=== PATIENT | female | born 1960 | race Caucasian/White ===

== ENCOUNTER → 2024-10-28 | Outpatient (CLI) | payer MEDICAID, SELFPAY ==
--- NOTE | 2024-10-28 14:51 | XR_ITS ---
Examination: PA lateral chest 2 views TECHNIQUE: Upright PA lateral chest 2 views Exam date and time: October 28, 2024 1402 hours Comparison September 04, 2024 INDICATIONS: Shortness of breath 6 months, history miliary nodular pattern on CT chest October 04, 2024 FINDINGS: Moderate hyperexpansion Normal heart size No pneumonia identified 3 mm 2 mm pulmonary nodules right lower lobe Moderate osteopenia IMPRESSION: 3 mm, 2 mm pulmonary nodules right lower lobe
== END | disposition home or self-care (01) ==
LOC: CDIM 14:40
PROVIDERS: PCP Family Medicine; Referring Provider Nurse Practitioner Family; Visit Provider Nurse Practitioner Family
DX: R91.8 Other nonspecific abnormal finding of lung field (principal)
CPT/HCPCS: 71046

== ENCOUNTER → 2024-11-08 | Outpatient (CLI) | payer MEDICAID, SELFPAY ==
--- NOTE | 2024-11-07 11:00 | XR_ITS ---
Examination: Breast ultrasound, unilateral, left complete Date and time of exam: November 07, 2024 1119 hours INDICATIONS: Mammogram September 02, 2024 8 mm focal asymmetry upper outer left breast Technique: Real-time arango scale ultrasonographic imaging performed left breast including all 4 quadrants as well as nipple retroareolar and axillary region. Findings: No cystic or solid mass IMPRESSION: BI-RADS Category 1: Negative study
--- NOTE | 2024-11-08 | XR_ITS ---
Examination: Diagnostic digital mammography, unilateral, left Computer aided detection 3-D breast Tomosynthesis, unilateral Date and time of exam: November 08, 2024 0758 hours INDICATIONS: Mammogram September 02, 2024 8 mm focal asymmetry upper outer left breast Technique: Nonmagnified MLO, CC views of the left breast have been obtained, reconstructed from 3-D Tomosynthesis images. R2 computer aided detection program utilized for evaluation of suspicious masses and/or abnormal calcifications. 3-D Tomosynthesis images obtained. Findings: Scattered areas of fibroglandular density No suspicious masses noted on the spot compression views Impression: BI-RADS category 2: Benign findings Return to yearly follow-up mammography
== END | disposition home or self-care (01) ==
PROVIDERS: PCP Nurse Practitioner Family; Referring Provider Nurse Practitioner Family; Visit Provider Nurse Practitioner Family
DX: R92.322 Mammographic fibroglandular density, left breast (principal)
CPT/HCPCS: 76641; 77061; 77065; G0279

== ENCOUNTER 2024-12-23 09:53 | Outpatient (RCR) | payer MEDICAID, SELFPAY ==
--- NOTE | 2024-12-23 10:00 | XR_ITS ---
Examination: SANDI, hepatobiliary radioisotope scan Gallbladder ejection fraction study. Date and time of exam: December 23, 2024 1010 hours INDICATIONS: Nausea vomiting heartburn this week, smoking history 40 years Technique: 5.9 mCi of 99M Hepatolite administered. Serial imaging then obtained from immediate through 60 minutes. 1.1 mcg selective catheter Kinevac administered for gallbladder ejection fraction study. Findings: Radioisotope activity within the liver is reasonably homogenous. Gallbladder, common bile duct small bowel activity noted Impression: Gallbladder activity Abnormal gallbladder ejection fraction 40% normal greater than 35%
== END 2024-12-28 23:59 | disposition home or self-care (01) ==
LOC: SNUC 09:53
PROVIDERS: Referring Provider Nurse Practitioner Family; Visit Provider Nurse Practitioner Family
DX: R93.2 Abnormal findings on diagnostic imaging of liver and biliary tract (principal)
CPT/HCPCS: 78227; A9537; J2805

== ENCOUNTER 2025-04-19 19:47 | Emergency (ER) | payer MEDICAID, SELFPAY ==
--- NOTE | 2025-04-19 20:40 | PD.EDSOB ---
ED SOB =RME/HPI General Chief Complaint: Shortness of Breath/Dyspnea Stated Complaint: SOB, LOW O2 AT HOME Time Seen by Provider: 04/19/25 20:40 Arrival date/time: 04/19/25 19:47 RME / HPI RME / HPI Narrative: This section includes all my notes and documentations, including HPI, PE, and ED course. Alexi Raymond MD HPI: 64 y/o female with Hx of COPD, Asthma, and smoking presents to ED c/o shortness of breath and headache and purulent productive cough for about a week. Denies fever. Patient previously stopped smoking, but recently had an ND and she began again. No other complaints. ROS: All negative except as documented in HPI. Physical Exam: General: Alert and oriented. Hacking cough noted. Eyes: Conjunctivae and lids clear. ENT: No nasal congestion. Pharynx normal. TM normal bilaterally. Neck: Supple. Heart: RRR. Lungs: No respiratory distress. Mildly decreased air movement with rales. Abdomen: Soft and nontender. Skin: Warm and dry. Neuro: Alert and oriented X 3. I reviewed all diagnostic test results. My interpretation of the chest x-ray is infiltrates. COVID/influenza negative. At this point, diagnoses include Pneumonia. Treatment here included Zithromax, Prednisone. Recommended outpatient management. Based on my best medical judgment, made decision no further evaluation or treatment indicated at this time. Patient understands and agrees to the discharge instructions customized and printed, see below. Discharge instructions from Dr. Raymond: --No physical exertion for 3 days to help rest the lungs. ?No smoking or exposure to smoking or pets or dust or cold or humidity. --Zithromax and cefdinir to kill the germs causing the pneumonia. --Prednisone to help decrease the swelling in the airways. --Albuterol 2 puffs every 4-6 hours for 3 days to help keep the airways open. Then as needed for cough or shortness of breath. --See a private doctor next week for recheck if not completely better. --Seek immediate medical care with worsening or with any concerns. Alexi Raymond MD Related Data Home Medications ?Medication ?Instructions ?Recorded ?Confirmed amitriptyline 25 mg tablet 25 mg PO DAILY 08/18/24 08/18/24 atogepant 60 mg tablet (Qulipta) 60 mg PO DAILY 08/18/24 08/18/24 baclofen 10 mg tablet 10 mg PO TID 08/18/24 08/18/24 duloxetine 60 mg capsule,delayed 60 mg PO DAILY 08/18/24 08/18/24 release fluticasone 250 mcg-salmeterol 50 2 inh inhalation BID 08/18/24 08/18/24 mcg/dose blistr powdr for inhalation (Advair Diskus) hydroxyzine HCl 25 mg tablet 25 mg PO TID 08/18/24 08/18/24 metoprolol succinate 50 mg 50 mg PO DAILY 08/18/24 08/18/24 tablet,extended release 24 hr ramelteon 8 mg tablet 8 mg PO HS 08/18/24 08/18/24 tiotropium bromide 1.25 1 inh inhalation BID 08/18/24 08/18/24 mcg/actuation mist for inhalation (Spiriva Respimat) Previous Rx's ?Medication ?Instructions ?Recorded ipratropium 0.5 mg-albuterol 3 mg 3 ml inhalation QDAY PRN shortness 08/19/24 (2.5 mg base)/3 mL nebulization of breath or wheezing #90 mL soln nebulizers (Aeroneb Go Nebulizer) #1 ea 08/19/24 amoxicillin 875 mg-potassium 1 tab PO BID #10 tabs 08/20/24 clavulanate 125 mg tablet azithromycin 250 mg tablet 250 mg PO QDAY #3 tabs 08/20/24 azithromycin 500 mg tablet 500 mg PO QDAY 3 days #3 tabs 04/19/25 (Zithromax TRI-LENO) cefdinir 300 mg capsule 300 mg PO BID #14 caps 04/19/25 prednisone 20 mg tablet 20 mg PO BID 3 days #6 tabs 04/19/25 Allergies Allergy/AdvReac Type Severity Reaction Status Date / Time latex Allergy Severe Rash Verified 04/19/25 19:48 Review of Systems Review of Systems Systems Reviewed: All systems reviewed, normal except as documented Past Medical History Past Medical History CARDIAC: Positive Cardiac Disorders (fast heart rate for a while.) and Cardiac Arrhythmia RESPIRATORY: Positive Chronic Obstructive Pulmonary Disease (COPD), Asthma and Pneumonia GASTROINTESTINAL: Positive Gastrointestinal Disorders (constipation) and Hemorrhoids MUSCULOSKELETAL: Positive Musculoskeletal Disorders (sciatica) OTHER HISTORY: Positive Falls Social History SMOKING STATUS: Current every day smoker ED Exam Narrative Physical exam: Refer to HPI above Course Course Course Narrative: CXR is ordered for determining the etiology of shortness of breath. Quality Measures none Orders Category Date Time Status Bedside COVID-19 Antigen Test NOW Care 04/19/25 20:41 Active Bedside Influenza A&B Antigen Test NOW Care 04/19/25 20:41 Completed XR chest 1V portable Stat Exams 04/19/25 20:41 Completed Azithromycin Po [Zithromax PO] Med 04/19/25 21:20 Discontinued 500 mg PO X1 ONE predniSONE Med 04/19/25 21:20 Discontinued 40 mg PO X1 ONE Vital Signs Vital signs: Vital Signs Temperature 98.3 F 04/19/25 20:42 Pulse Rate 96 04/19/25 20:42 Respiratory Rate 20 04/19/25 20:42 Blood Pressure 131/57 H 04/19/25 20:42 Pulse Oximetry (%) 100 04/19/25 20:42 Oxygen Delivery Method Room Air 04/19/25 20:42 Shortness of Breath / Dyspnea MDM Narrative MDM Narrative:: Scribe Attestation: I, Sobeida Robertson, am scribing for and in the presence of Dr. Raymond. Provider Notation: Although this document has been carefully reviewed, there may still be some phonetic and other typographical errors.? These errors are purely grammatical due to imperfections in the software program and should not be construed in any way to? compromise the substance of the patient's medical care during this visit. 64 y/o female with Hx of COPD and smoking presents to ED c/o shortness of breath x 3 days and cough and headache x 1 day. Denies fever. Patient previously stopped smoking, but recently had an ND and she began again. Patient will be hypnotized on Monday to help her stop smoking. She reports a successful 2 years of no smoking with the aid of hypnotism. No other complaints. Patient data External records reviewed:: [facility] previous records (Reviewed prior ED records from 08/18/24. Patient was seen for Hypoxemia.) Clinical information provided by:: patient Social determinants that could affect healthcare access:: none Patient has the following chronic illnesses:: Cardiac Arrhythmia, Sciatica, Asthma, Hemorrhoids, COPD How is presenting disease/condition affected by chronic disease/condition?: exacerbated by Evaluation data The following diagnostics were reviewed and interpreted by me:: lab results and radiology exam(s) Lab and/or radiology exams considered but not ordered:: None Interpretation Summary: I reviewed all diagnostic test results. My interpretation of the chest x-ray is infiltrates. COVID/influenza negative. Medications / Prescriptions Medications or Prescriptions considered but not ordered:: None Medication administrations:: Medication Administration History Discontinued Medications Azithromycin (Azithromycin 250 Mg Tablet) 500 mg PO X1 ONE Stop: 04/19/25 21:21 Prednisone (Prednisone 20 Mg Tablet) 40 mg PO X1 ONE Stop: 04/19/25 21:21 Zithromax, Prednisone Consultations Consultation(s) initiated? (list below): No Diagnosis Shortness of Breath Differential Diagnosis: acute exacerbation of chronic obstructive airways disease, congestive heart failure, community acquired pneumonia, asthma with exacerbation and pulmonary embolism Most likely diagnosis given after review of the tests above:: Pneumonia Admission Indicated Admission indicated?: not indicated Explain why admission is indicated or not indicated:: With no serious illness, there was no indication for admission.? Admission Request Was there a request for admission?: No Disposition Plan Disposition Plan: Discharge Discharge Attestation Discharge Attestation: The patient and all family members were given an opportunity to ask questions and understood the discharge instructions. Discharge instructions specifically effects, indications for sooner follow up or return to the emergency department, and the expected course of current diagnosis. Patient condition: Stable Discharge Plan Plan Patient Disposition: HOME (Self Care) Prescriptions/Referrals Prescriptions/Med Rec: New prednisone 20 mg tablet 20 mg PO BID 3 Days Qty: 6 0RF Taper: Prednisone Taper 20 mg DAILY for 2 Days and 0 Hour 10 mg DAILY for 2 Days and 0 Hour 5 mg DAILY for 7 Days and 0 Hour cefdinir 300 mg capsule 300 mg PO BID Qty: 14 0RF azithromycin [Zithromax TRI-LENO] 500 mg tablet 500 mg PO QDAY 3 Days Qty: 3 0RF No Action hydroxyzine HCl 25 mg tablet 25 mg PO TID Spiriva Respimat 1.25 mcg/actuation mist 1 inh INHALATION BID fluticasone propion-salmeterol [Advair Diskus] 250-50 mcg/dose blister with device 2 inh INHALATION BID baclofen 10 mg tablet 10 mg PO TID Qulipta 60 mg tablet 60 mg PO DAILY Rx Instructions: for migraine ramelteon 8 mg tablet 8 mg PO HS metoprolol succinate 50 mg tablet extended release 24 hr 50 mg PO DAILY amitriptyline 25 mg tablet 25 mg PO DAILY duloxetine 60 mg capsule,delayed release(DR/EC) 60 mg PO DAILY (DME) nebulizers [Aeroneb Go Nebulizer] Misc See Rx Instructions .Route Qty: 1 0RF Rx Instructions: As directed ipratropium-albuterol 0.5 mg-3 mg(2.5 mg base)/3 mL solution for nebulization 3 ml inhalation QDAY PRN (Reason: shortness of breath or wheezing) Qty: 90 0RF azithromycin 250 mg tablet 250 mg PO QDAY Qty: 3 0RF amoxicillin-pot clavulanate 875-125 mg tablet 1 tab PO BID Qty: 10 0RF Problem List Clinical Impression: Pneumonia Patient/Caregiver Discharge Instructions Education Materials: ED Pneumonia (Adult) Additional Instructions: Discharge instructions from Dr. Raymond: --No physical exertion for 3 days to help rest the lungs. ?No smoking or exposure to smoking or pets or dust or cold or humidity. --Zithromax and cefdinir to kill the germs causing the pneumonia. --Prednisone to help decrease the swelling in the airways. --Albuterol 2 puffs every 4-6 hours for 3 days to help keep the airways open. Then as needed for cough or shortness of breath. --See a private doctor next week for recheck if not completely better. --Seek immediate medical care with worsening or with any concerns. Print Language: French Stand Alone Forms: Marjorie Award Info., Patient Portal Info Letter
--- NOTE | 2025-04-19 20:41 | XR_ITS ---
Examination: PA chest single view TECHNIQUE: Upright PA chest single view April 19, 2025 at 2048 hours INDICATIONS: Shortness of breath beginning 3 days ago FINDINGS: Bibasilar pneumonia, significant right base Normal heart size Moderate osteopenia IMPRESSION: Bibasilar pneumonia, significant right base
[2025-04-19 20:42] VITALS: BP 131/57; PULSE 96; RESP 20; TEMP 36.8; O2SAT 100
[2025-04-19] MEDS: AZITHROMYCIN 250 MG TABLET 500 MG PO (21:44)
[2025-04-19] MEDS: predniSONE 20 MG TABLET 40 MG PO (21:44)
[2025-04-19 21:46] VITALS: RESP 16
== END 2025-04-19 21:46 | disposition home or self-care (01) ==
PROVIDERS: Emergency Provider Emergency Medicine
DX: J18.9 Pneumonia, unspecified organism (principal); J44.0 Chronic obstructive pulmonary disease with (acute) lower respiratory infection
CPT/HCPCS: 71045; 87400; 87811; 99283; J7512; A9270

== ENCOUNTER → 2025-05-08 | Outpatient (CLI) | payer MEDICAID, SELFPAY ==
--- NOTE | 2025-05-08 08:55 | XR_ITS ---
Examination: PA lateral chest 2 views TECHNIQUE: Upright PA lateral chest 2 views Date and time: May 08, 2025 0924 hours Comparison April 19, 2025 INDICATIONS: History pneumonia FINDINGS: No current pneumonia Normal heart size Moderate hyperexpansion IMPRESSION: No current pneumonia
== END | disposition home or self-care (01) ==
PROVIDERS: PCP Nurse Practitioner Family; Referring Provider Nurse Practitioner Family; Visit Provider Nurse Practitioner Family
DX: J15.9 Unspecified bacterial pneumonia (principal)
CPT/HCPCS: 71046

== ENCOUNTER → 2025-10-28 | Outpatient (CLI) | payer MEDICAID, SELFPAY ==
--- NOTE | 2025-10-28 14:36 | XR_ITS ---
EXAMINATION: PA lateral chest 2 views TECHNIQUE: Upright PA lateral chest 2 views Date and time: October 28, 2025, 1502 hours INDICATIONS: Abnormal breath sounds on auscultation today. FINDINGS: Moderate hyperexpansion. Normal heart size No pneumonia or pulmonary edema. Prominent osteopenia IMPRESSION: Moderate hyperexpansion No pneumonia or pulmonary edema
== END | disposition home or self-care (01) ==
LOC: CDIM 14:27
PROVIDERS: PCP Family Medicine; Referring Provider Nurse Practitioner Family; Visit Provider Nurse Practitioner Family
DX: R09.89 Other specified symptoms and signs involving the circulatory and respiratory systems (principal)
CPT/HCPCS: 71046